=== PATIENT | male | born 1990 | race Caucasian/White ===

== ENCOUNTER 2019-03-04 23:25 | Emergency (ER) | payer OTHER ==
[2019-03-04 23:42] VITALS: BP 107/67; PULSE 58; RESP 15; TEMP 97.4
[2019-03-05] MEDS ORDERED: LIDOCAINE 1% INJ 10MG/ML (20 ML MDV) SQ STA (02:07)
--- NOTE | 2019-03-05 02:44 | ED ---
General Adult HPI - General Chief complaint: Wound/Laceration Stated complaint: [facility] Finger Laceration Time Seen by Provider: 03/05/19 01:01 Source: patient, RN notes reviewed, old records reviewed Mode of arrival: ambulatory Limitations: no limitations - History of Present Illness Initial comments: 28-year-old male patient presents to ED chief complaint laceration. Shortly he was at work, cut himself on the last piece of stainless steel at the DIP region of his right hand. Patient was a tetanus shot is up-to-date. Patient denies any other complaints. Systemic: Pt denies fatigue, fever/chills, rash. Pt denies weakness, night sweats, weight loss. Neuro: Pt denies headache, visual disturbances, syncope or pre-syncope. HEENT: Pt denies ocular discharge or irritation, otalgia, rhinorrhea, pharyngitis or notable lymphadenopathy. Cardiopulmonary: Pt denies chest pain, SOB, heart palpitations, dyspnea on exertion. Abdominal/GI: Pt denies abdominal pain, n/v/d. : Pt denies dysuria, burning w/ urination, frequency/urgency. Denies new onset urinary or bowel incontinence. MSK: Pt denies myalgia, loss of strength or function in extremities. Neuro: Pt denies new onset weakness, paresthesias. - Related Data Allergies Allergy/AdvReac Type Severity Reaction Status Date / Time No Known Allergies Allergy Verified 03/04/19 23:42 Review of Systems ROS Statement: Those systems with pertinent positive or pertinent negative responses have been documented in the HPI. ROS Other: All systems not noted in ROS Statement are negative. Past Medical History Past Medical History: No Reported History History of Any Multi-Drug Resistant Organisms: None Reported Past Surgical History: No Surgical Hx Reported Past Psychological History: No Psychological Hx Reported Smoking Status: Never smoker Past Alcohol Use History: None Reported Past Drug Use History: None Reported General Exam - General Exam Comments Initial Comments: Constitutional: NAD, AOX3, Pt has pleasant affect. HEENT: NC/AT, trachea midline, neck supple, no lymphadenopathy. Posterior pharynx non erythematous, without exudates. External ears appear normal, without discharge. Mucous membranes moist. Eyes PERRLA, EOM intact. There is no scleral icterus. No pallor noted. Cardiopulmonary: RRR, no murmurs, rubs or gallops, no JVD noted. Lungs CTAB in anterior and posterior walters. No peripheral edema. Abdominal exam: Abdomen soft and non-distended. Abdomen non-tender to palpation in all 4 quadrants. Bowel sounds active in LLQ. No hepatosplenomegaly. No ecchymosis Neuro: CN II-XII grossly intact. No nuchal rigidity. No raccon eyes, no denis sign, no hemotympanum. No cervical spinal tenderness. MSK: 2 centimeters laceration right first digit DIP joint medial aspect. Full a ctive range of motion of all joints before and after suture placement. Vigorously irrigated, 3 simple interrupted sutures placed. No posterior calf tenderness bilaterally, homans sign negative bilaterally. Posterior tibialis and radial pulse +2 bilaterally. Sensation intact in upper and lower extremities. Full active ROM in upper and lower extremities, 5/5 stregnth. Limitations: no limitations Course Vital Signs 03/04/19 23:39 Temperature 97.4 F L Pulse Rate 58 L Respiratory 15 Rate Blood Pressure 107/67 O2 Sat by Pulse 97 Oximetry Medical Decision Making - Medical Decision Making 28-year-old male patient presents to ED chief complaint laceration. Shortly he was at work, cut himself on the last piece of stainless steel at the DIP region of his right hand. Patient was a tetanus shot is up-to-date. Patient denies an y other complaints. Patient vital signs stable, afebrile. Physical exam displayed: 2 centimeters laceration right first digit DIP joint medial aspect. Full active range of motion of all joints before and after suture placement. Vigorously irrigated, 3 simple interrupted sutures placed. Sensation intact. Plain film displayed soft tissue deformity. Patient was discharged will be given orthopedic consult if any symptoms arise. Return precautions discussed. Case discussed with Dr. Cortes. Disposition Clinical Impression: Laceration Disposition: HOME SELF-CARE Condition: Stable Instructions (If sedation given, give patient instructions): Laceration (ED) Additional Instructions: Patient to adhere to previously discussed treatment plan and will take medication(s) as directed. Patient to follow up with PCP in 1-2 days. Patient to return to ED if symptoms do not improve. Follow-up with primary care provider. Follow up with orthopedic consult if any range of motion difficulties arise. Please return for suture removal: Hand: 7-10 days Face: 5 days Chest/abdomen: 12-14 days Extremities: 7-10 days Scalp: 7 days Eyebrow: 5-7 days Foot/sole: 12-14 days Please monitor for signs and symptoms of infection including: redness, warmth, drainage, discharge. Please return to ED if these signs or symptoms occur, new signs or symptoms develop or if condition worsens in anyway. Is patient prescribed a controlled substance at d/c from ED?: No Referrals: None,Stated [Primary Care Provider] - 1-2 days Hammad Iniguez DO [Medical Doctor] - 1-2 days
--- NOTE | 2019-03-05 03:07 | XR ---
EXAMINATION TYPE: XR finger RT DATE OF EXAM: 03/05/2019 COMPARISON: NONE HISTORY: Pain. Laceration TECHNIQUE: 3 views FINDINGS: There is some soft tissue mild deformity of the anterior index finger consistent with lacer ation. I see no foreign body. There is no fracture nor dislocation. IMPRESSION: Soft tissue deformity. No fracture.
== END 2019-03-05 03:24 | disposition home or self-care (01) ==
LOC: EC 23:25
DX: S61.011A Laceration without foreign body of right thumb without damage to nail, initial encounter (principal); X78.8XXA Intentional self-harm by other sharp object, initial encounter; Y93.89 Activity, other specified; Y92.69 Other specified industrial and construction area as the place of occurrence of the external cause; Y99.0 Civilian activity done for income or pay
CPT/HCPCS: 73140; 99283; 12001; J2001